=== PATIENT | male | born 2000 | race Hispanic/Latino ===

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

== ENCOUNTER 2018-08-11 00:58 | Emergency (ER) | payer OTHER, SELFPAY ==
[2018-08-11] MEDS ORDERED: Lidocaine 1% (PF) 30 ML VIAL ONE (01:48)
[2018-08-11] MEDS ORDERED: Azithromycin 250 MG TAB ONE (01:48)
[2018-08-11] MEDS ORDERED: cefTRIAXone\\ROCEPHIN 250 MG VIAL ONE (01:48)
[2018-08-12 00:38] LABS: Chlam.trachomatis by PCR,Urine DETECTED (NotDetected)
== END 2018-08-11 02:25 | disposition home or self-care (01) ==
LOC: NAV ERS 00:58
DX: N34.1 Nonspecific urethritis (principal); F17.290 Nicotine dependence, other tobacco product, uncomplicated
CPT/HCPCS: 87491; 87591; 96372; J0696; J2001